=== PATIENT | female | born 1990 | race Caucasian/White ===

== ENCOUNTER 2020-12-21 18:34 | Emergency (ER) | payer BC ==
[2020-12-21] MEDS ORDERED: NA CHLORIDE 0.9% 2,000 ML ONE (19:20)
[2020-12-21] MEDS ORDERED: ACETAMINOPHEN 325 MG TABLET ONE (19:20)
[2020-12-21 19:41] LABS: Absolute Lymphocytes (CBC) 0.5 K/uL (0.7-4.9); Basophils % 0.3 % (0-1.3); Hematocrit 41.8 % (36.0-45.0); Lymphocytes % 10.6 % (15.3-44.8); MPV 7.5 fL (7.6-11.3); RBC Red Blood Cell Count 4.47 M/uL (3.86-4.86)
[2020-12-21 19:43] LABS: Protime INR 1.03
[2020-12-21 19:45] LABS: Urine Blood Negative (Negative); Urine Glucose Negative (Negative); Urine Protein Negative (Negative)
[2020-12-21 19:50] LABS: Albumin 4.4 g/dL (3.4-5.0); Bicarbonate 26 mmol/L (21-32); Glucose Level 100 mg/dL (74-106); Lipase 187 U/L (73-393); Potassium 3.6 mmol/L (3.5-5.1); Sodium Level 141 mmol/L (136-145)
[2020-12-21 19:59] LABS: ALT/SGPT 20 U/L (12-78); AST/SGOT 10 U/L (15-37); Alkaline Phosphatase 70 U/L (45-117); Amylase 45 U/L (25-115); BUN Blood Urea Nitrogen 9 mg/dL (7-18); Bilirubin Direct 0.1 mg/dL (0-0.2); Bilirubin Total 0.3 mg/dL (0.2-1.0); Creatine Phosphokinase 47 U/L (26-192); Troponin (Emerg Dept Use Only) < 0.02 ng/mL (0.0-0.045)
[2020-12-21 20:03] LABS: Urine Bacteria <20 /HPF (<20); Urine RBC <5 /HPF (NONE SEEN)
[2020-12-21 20:10] LABS: CKMB Creatine Kinase MB < 1.0 ng/mL (1.0-3.6)
[2020-12-21 20:17] LABS: Barbiturates NEGATIVE (NEGATIVE); Benzodiazepines NEGATIVE (NEGATIVE); Cocaine NEGATIVE (NEGATIVE); METHAMPHETAM NEGATIVE (NEGATIVE); Methadone NEGATIVE (NEGATIVE); Opiates NEGATIVE (NEGATIVE); Phencyclidine NEGATIVE (NEGATIVE); THC Cannibis POSITIVE (NEGATIVE)
[2020-12-21] MEDS ORDERED: MORPHINE 2 MG/ML SYR ONE (20:26)
[2020-12-21] MEDS ORDERED: ONDANSETRON 4 MG/2 ML VIAL ONE (20:26)
[2020-12-21 20:42] LABS: SARS-COV-2 RT PCR POSITIVE (NEGATIVE)
--- NOTE | 2020-12-21 20:59 | RAD REPORT ---
EXAM DESCRIPTION: RAD - Chest Single View - 12/21/2020 8:21 pm CLINICAL HISTORY: Cough;Fever COMPARISON: Abdomen Pelvis W Contrast dated 12/21/2020 FINDINGS: Lines: None. Lungs: The lungs are clear. Pleural: No significant pleural effusions or pneumothorax. Cardiac: The heart size is within normal limits. Bones: No acute fractures. Other: IMPRESSION: No acute cardiopulmonary disease.
--- NOTE | 2020-12-21 21:03 | RAD REPORT ---
EXAM DESCRIPTION: CTAbdomen Pelvis W Contrast - 12/21/2020 8:53 pm CLINICAL HISTORY: ABD PAIN COMPARISON: No comparisons TECHNIQUE: CT of the abdomen and pelvis was performed. All CT scans are performed using dose optimization technique as appropriate and may include automated exposure control or mA/KV adjustment according to patient size. FINDINGS: Lower chest: No acute abnormality. Liver: No acute abnormality or suspicious lesions. Focal fat along the falciform ligament. Biliary: Cholecystectomy. Prominence of the extrahepatic common bile duct likely related the postchol ecystectomy state. Stomach: No significant focal abnormality. Duodenum: No significant focal abnormality. Pancreas: No significant abnormality. Spleen: No significant abnormality. Adrenal: No suspicious lesions. Kidney/ureter: No hydronephrosis. No renal calculi. Retroperitoneum: No retroperitoneal adenopathy. Vascular: No aneurysm. Bowel: Nonspecific fluid within the small bowel.. No appendicitis. Peritoneum: Trace pelvic free fluid. Bladder: Grossly unremarkable. Reproductive: No adnexal masses. Tampon . Bones: No acute fracture. Other: n/a IMPRESSION: Nonspecific fluid within the small bowel may represent a mild enteritis. No other acute findings are identified.
[2020-12-21] MEDS ORDERED: MAGNES/ALUMIN/SIMET 30ML UCUP ONE (21:11)
[2020-12-21] MEDS ORDERED: LIDOCAINE VISCOUS 2% SOLN 15 ML UDC ONE (21:12)
--- NOTE | 2020-12-21 21:39 | EDPHYS ---
Physician Documentation [facility] Name: Graciela Howard Age: 30 yrs Sex: Female : 1990 Arrival Date: 12/21/2020 Time: 18:40 Bed 2 Private MD: ED Physician Chan Ny HPI: 12/21 19:21 This 30 yrs old Female presents to ER via Wheelchair with complaints of Back pkl Pain. 19:21 The patient presents with pain that is acute. The symptoms are located in the low back. pkl Onset: The symptoms/episode began/occurred today. The pain radiates to the left leg. Associated signs and symptoms: Pertinent positives: fever, numbness, tingling, left leg, cough with yellowish sputum. 19:25 Patient was seen at [facility] earlier this morning for similar complaints. 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 - Social history:: Smoking status: Reported history of juuling and/or vaping. ROS: 19:25 Eyes: Negative for injury, pain, redness, and discharge, ENT: Negative for injury, pkl pain, and discharge, Neck: Negative for injury, pain, and swelling, Cardiovascular: Negative for chest pain, palpitations, and edema. 19:25 Respiratory: Positive for cough, with yellow sputum, Negative for shortness of breath. 19:25 Abdomen/GI: Positive for abdominal pain, of the left upper quadrant and left lower quadrant. 19:25 Back: Positive for of the left low back. 19:25 : Negative for urinary symptoms. 19:25 MS/extremity: Negative for acute changes. 19:25 Skin: Negative for rash. 19:25 Neuro: Positive for numbness, tingling, of the left leg. Exam: 19:25 Head/Face: Normocephalic, atraumatic. Eyes: Pupils equal round and reactive to light, pkl extra-ocular motions intact. Lids and lashes normal. Conjunctiva and sclera are non-icteric and not injected. Cornea within normal limits. Periorbital areas with no swelling, redness, or edema. ENT: Nares patent. No nasal discharge, no septal abnormalities noted. Tympanic membranes are normal and external auditory canals are clear. Oropharynx with no redness, swelling, or masses, exudates, or evidence of obstruction, uvula midline. Mucous membranes moist. Neck: Trachea midline, no thyromegaly or masses palpated, and no cervical lymphadenopathy. Supple, full range of motion without nuchal rigidity, or vertebral point tenderness. No Meningismus. Chest/axilla: Normal chest wall appearance and motion. Nontender with no deformity. No lesions are appreciated. Cardiovascular: Regular rate and rhythm with a normal S1 and S2. No gallops, murmurs, or rubs. Normal PMI, no JVD. No pulse deficits. Respiratory: Lungs have equal breath sounds bilaterally, clear to auscultation and percussion. No rales, rhonchi or wheezes noted. No increased work of breathing, no retractions or nasal flaring. 19:25 Abdomen/GI: Bowel sounds: normal, Palpation: soft, mild abdominal tenderness, in the left upper quadrant and left lower quadrant. 19:25 Back: pain, that is moderate, of the left low back. 19:25 : Exam negative for acute changes. 19:25 Musculoskeletal/extremity: Exam is negative for acute changes. 19:25 Skin: Exam negative for rash. 19:25 Neuro: Orientation: is normal, Mentation: is normal, Cranial nerves: grossly normal, Motor: moves all fours, Sensation: tingling, that is mild, of the left leg. Vital Signs: 18:47 BP 105 / 80; Pulse 120; Resp 16; Temp 101(O); Pulse Ox 100% ; Weight 56.7 kg; Height 5 vg1 ft. 4 in. (162.56 cm); Pain 10/10; 19:14 BP 115 / 89; Pulse 107; Resp 22; Pulse Ox 96% on R/A; Pain 10/10; tw5 19:39 BP 106 / 83; Pulse 94; Resp 23; Pulse Ox 98% on R/A; Pain 10/10; tw5 20:36 BP 101 / 70; Pulse 98; Resp 16; Temp 99.3; Pulse Ox 100% on R/A; Pain 10/10; tw5 20:59 Pain 6/10; tw5 21:03 BP 125 / 95; Pulse 85; Resp 26; Pulse Ox 100% on R/A; Pain 6/10; tw5 22:28 BP 130 / 88; Pulse 88; Resp 18; Temp 98.8(O); Pulse Ox 99% on R/A; Pain 0/10; kc4 18:47 Body Mass Index 21.46 (56.70 kg, 162.56 cm) vg1 MDM: 19:07 Patient medically screened. pkl 21:34 Data reviewed: vital signs, nurses notes, lab test result(s), EKG, radiologic studies, pkl CT scan, plain films. ED course: Patient feeling better. Discussed lab, EKG and Imaging studies with patient. Advised quarantine for 10 days. To follow up with PCP in 2 to 3 days and have MRI lumbar spines done as out patient. Patient understood instructions. 12/21 19:17 Order name: Amylase, Serum pkl 12/21 19:17 Order name: Basic Metabolic Panel pkl 12/21 19:17 Order name: Blood Culture Adult (2) pkl 12/21 19:17 Order name: CBC with Diff; Complete Time: 20:04 pkl 12/21 19:17 Order name: CPK; Complete Time: 20:17 pkl 12/21 19:17 Order name: Ckmb; Complete Time: 20:17 pkl 12/21 19:17 Order name: LFT's; Complete Time: 20:17 pkl 12/21 19:17 Order name: Lactate; Complete Time: 20:18 pkl 12/21 19:17 Order name: Lipase; Complete Time: 20:17 pkl 12/21 19:17 Order name: Procalcitonin; Complete Time: 20:17 pkl 12/21 19:17 Order name: Protime (+inr); Complete Time: 20:04 pkl 12/21 19:17 Order name: Ptt, Activated; Complete Time: 20:04 pkl 12/21 19:17 Order name: Troponin (emerg Dept Use Only); Complete Time: 20:17 pkl 12/21 19:17 Order name: Urine Microscopic Only; Complete Time: 20:04 pkl 12/21 19:17 Order name: Chest Single View XRAY; Complete Time: 21:30 pkl 12/21 19:17 Order name: Accucheck; Complete Time: 19:21 pkl 12/21 19:18 Order name: Amylase; Complete Time: 20:17 EDMS 12/21 19:18 Order name: Basic Metabolic Panel; Complete Time: 20:17 EDMS 12/21 19:20 Order name: COVID-19/FLU A+B/RSV (Document "Date of Onset" if Symptomatic); Complete pkl Time: 20:56 12/21 19:20 Order name: UDS; Complete Time: 20:18 pkl 12/21 19:41 Order name: Glucose, Ancillary Testing; Complete Time: 20:04 EDMS 12/21 19:45 Order name: Urine Dipstick-Ancillary; Complete Time: 20:04 EDMS 12/21 19:47 Order name: Urine --Ancillary (enter results); Complete Time: 21:30 tt3 12/21 20:20 Order name: CT Abd/Pelvis - IV Contrast Only; Complete Time: 21:30 pkl 12/21 19:17 Order name: Cardiac monitoring; Complete Time: 19:21 pkl 12/21 19:17 Order name: EKG - Nurse/Tech; Complete Time: 19:21 pkl 12/21 19:17 Order name: IV Saline Lock - Large Bore; Complete Time: 19:21 pkl 12/21 19:17 Order name: Labs collected and sent; Complete Time: 19:21 pkl 12/21 19:17 Order name: O2 Per Protocol; Complete Time: 19:21 pkl 12/21 19:17 Order name: O2 Sat Monitoring; Complete Time: 19:21 pkl 12/21 19:17 Order name: Urine Dipstick-Ancillary (obtain specimen); Complete Time: 19:39 pkl Administered Medications: 19:37 Drug: NS 0.9% (30 ml/kg) 30 ml/kg Route: IV; Rate: bolus; Site: right antecubital; tw5 20:37 Follow up: IV Status: Order to discontinue infusion; IV Intake: 1000ml ; decrease fluid tw5 rate to 125 ml/hr per doc orders 19:39 Drug: Tylenol 650 mg Route: PO; tw5 20:37 Follow up: Response: No adverse reaction; Temperature is decreased tw5 20:32 Drug: Zofran (Ondansetron) 4 mg Route: IVP; Site: left antecubital; tw5 20:59 Follow up: Response: No adverse reaction tw5 22:31 Follow up: Response: No adverse reaction kc4 20:37 Drug: morphine 2 mg Route: IVP; Site: left antecubital; tw5 20:59 Follow up: Pain 6/10 Adult; Response: No adverse reaction; Pain is decreased; RASS: tw5 Alert and Calm (0) 21:03 Drug: morphine 2 mg Route: IVP; Site: left antecubital; tw5 21:03 Drug: NS 0.9% 1000 ml Route: IV; Rate: 125 ml/hr; Site: right antecubital; tw5 22:31 Follow up: Response: No adverse reaction; IV Status: Completed infusion kc4 21:20 Drug: GI Cocktail without - (Maalox Suspension 30 ml, Lidocaine Liquid 2 % 15 kc4 ml) Route: PO; 22:31 Follow up: Response: No adverse reaction kc4 Disposition Summary: 12/21/20 21:39 Discharge Ordered Location: Home pkl Problem: new pkl Symptoms: have improved pkl Condition: Stable pkl Diagnosis - Positive Covid 19. Lumbar radiculopathy pkl Followup: pkl - With: Private Physician - When: 2 - 3 days - Reason: Re-evaluation by your physician Discharge Instructions: - Discharge Summary Sheet pkl Forms: - Medication Reconciliation Form pkl - Thank You Letter pkl - Antibiotic Education pkl - Prescription Opioid Use pkl Prescriptions: - Diclofenac Sodium 75 mg Oral Tablet Sustained Release - take 1 tablet by ORAL route 2 times per day; 30 tablet; Refills: 0, Product pkl Selection Permitted Signatures: Dispatcher [employer] Chan Ruiz MD MD pkl Lisandra Lutz RN RN vg1 Louisa Jennings kc4 Martha Rincon tw5
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
[2020-12-21 22:47] VITALS: BP 130/88; TEMP 98.8; O2SAT 99
--- NOTE | 2020-12-23 18:29 | EKG ---
Test Date: 2020-12-21 Test Time: 19:26:19 Teacher Vocal: MEASUREMENT RESULTS: Intervals: Rate: 100 VT: 150 QRSD: 74 QT: 334 QTc: 430 [place]: P: 63 VT: 150 QRS: 48 T: 36 INTERPRETIVE STATEMENTS: Normal sinus rhythm Normal ECG No previous ECG available for comparison Electronically Signed On 12-23-20 18:24:04 [employer] by Angel Oliveira
== END 2020-12-21 22:31 | disposition home or self-care (01) ==
LOC: ER 18:34
DX: U07.1 COVID-19 (principal); M54.16 Radiculopathy, lumbar region
CPT/HCPCS: 96365; 96361; 93005; 87040 ×2; 85025; 80048; 36415; 82150; 82550; 81025; 85610; 82947; 80076; 83605; 85730; 84484; 82553; 83690; 84145; 0241U; 80307; 74177; 71045; 96375; 99285; Q9967; J2270; J7030; J2405; 81003; 81015